=== PATIENT | female | born 1990 | race Two or more races ===

== ENCOUNTER → 2019-01-03 | Outpatient (CLI) | payer BC ==
--- NOTE | 2019-01-03 14:57 | RADIOLOGY REPORT (SQ) ---
EXAM DESCRIPTION: U/S NON-OB PELVIS TV W/O DOP COMPLETED DATE/TIME: 01/03/2019 2:47 pm REASON FOR STUDY: N91.2 AMENORRHEA, UNSPECIFIED N91.2 AMENORRHEA, UNSPECIFIED COMPARISON: None. TECHNIQUE: Dynamic and static grayscale images acquired of the pelvis via transvaginal approach and recorded on PACS. Additional selected color Doppler and spectral images recorded. LIMITATIONS: None. FINDINGS: UTERUS: Normal contour and size measuring 7.3 x 5.3 x 4.5 cm. Retroverted. ENDOMETRIAL STRIPE: Endometrial stripe measures 1.5 cm. CERVIX: No nabothian cysts. RIGHT OVARY AND DOPPLER: Normal size measuring 2.4 x 1.8 x 1.3 cm. No worrisome masses. Normal arteri al vascular flow without evidence for torsion. LEFT OVARY AND DOPPLER: Normal size measuring 2.0 x 1.8 x 1.9 cm. No worrisome masses. Normal arteria l vascular flow without evidence for torsion. FREE FLUID: None noted. OTHER: No other significant finding. IMPRESSION: Unremarkable transvaginal pelvic ultrasound. TECHNICAL DOCUMENTATION: JOB ID: [id number]- All Rights Reserved Rev Reading location - IP/workstation name: [email or web address]
== END ==
LOC: RAD 13:51
PROVIDERS: ATTEND Nurse Practitioner Family
DX: N91.2 Amenorrhea, unspecified (principal)
CPT/HCPCS: 76830

== ENCOUNTER 2019-09-30 17:51 | Emergency (ER) | payer BC ==
--- NOTE | 2019-09-30 17:52 | ER Document Report ---
ED Fever - General Chief Complaint: Fever Stated Complaint: FEVER Time Seen by Provider: 09/30/19 17:51 Primary Care Provider: JUAN REED FNP-C [NO LOCAL MD] - Follow up in 3-5 days (Call for follow- up appointment if not improving in 2 to 3 days.) Notes: 29-year-old female past medical history significant for depression and insomnia presents to the emergency room complaining of a cough, headache, fever as high as 103.7 for 2 days. States she has been taking Mucinex, ibuprofen, and Tylenol without relief. Last dose around 4 PM today of Tylenol Mucinex. No ill contacts. No recent travel. No COVID-19 exposure, states has been eating and drinking normally. Denies worst headache of her life, no history of migraines, no sudden thunderclap, states the headache is worse when she coughs. No antibiotics in the past month. TRAVEL OUTSIDE OF THE [place] IN LAST 30 DAYS: No - Related Data Allergies/Adverse Reactions: No Known Drug Allergies Allergy (Unknown, Verified 01/11/15 16:16) Past Medical History - General Information source: Patient - Social History Smoking Status: Never Smoker Frequency of alcohol use: None Drug Abuse: None Family History: Arthritis, CAD, CVA, DM, Hyperlipidemia, Hypertension, Malignancy Endocrine Medical History: Reports: Hx Hyperthyroidism Skin Medical History: Reports Hx Psoriasis Past Surgical History: Reports: Hx Section, Hx Oral Surgery - Immunizations Hx Diphtheria, Pertussis, Tetanus Vaccination: Yes Review of Systems - Review of Systems Constitutional: Fever EENT: No symptoms reported Cardiovascular: No symptoms reported Respiratory: Cough. denies: Short of breath, Wheezing Gastrointestinal: No symptoms reported Musculoskeletal: No symptoms reported Skin: No symptoms reported Neurological/Psychological: Headaches -: Yes All other systems reviewed and negative Physical Exam - Vital signs Vitals: Temp 99.3 F 09/30/19 17:55 - General General appearance: Appears well, Alert In distress: Mild - HEENT Head: Normocephalic, Atraumatic Eyes: Normal Pupils: PERRL - Respiratory Respiratory status: No respiratory distress Chest status: Nontender Breath sounds: Rhonchi. No: Rales, Wheezing Chest palpation: Normal - Cardiovascular Rhythm: Regular Heart sounds: Normal auscultation Murmur: No - Back Back: Normal, Nontender. No: CVA tenderness - Neurological Neuro grossly intact: Yes Cognition: Normal Orientation: AAOx4 Pritesh Coma Scale Eye Opening: Spontaneous Pritesh Coma Scale Verbal: Oriented [place] Coma Scale Motor: Obeys Commands Pritesh Coma Scale Total: 15 Speech: Normal Motor strength normal: LUE, RUE, LLE, RLE Sensory: Normal - Skin Skin Temperature: Warm Skin Moisture: Dry Skin Color: Normal Course - Re-evaluation Re-evalutation: 09/30/19 19:25 Patient is currently resting comfortably states her headache has resolved. Reviewed negative chest x-ray, negative flu, negative strep test. Afebrile, nontoxic-appearing, tolerates p.o. fluids. Patient was counseled on viral illness. Patient has no risk factors for COVID-19 testing. Also not supportive therapy, outpatient follow-up with primary care physician if not improving in 2 to 3 days. Given strict return to the emergency room guidelines. Return for any new or worsening symptoms. All questions were answered. Patient verbalized understanding and agrees with plan of care. - Vital Signs Vital signs: Temp Pulse Resp BP Pulse Ox 99.2 F 92 18 113/76 95 09/30/19 19:36 09/30/19 19:36 09/30/19 19:36 09/30/19 19:36 09/30/19 19:36 - Diagnostic Test Radiology reviewed: Reports reviewed Discharge - Discharge Clinical Impression: Cough, Viral illness Fever Qualifiers: Fever type: unspecified Qualified Code(s): R50.9 - Fever, unspecified Condition: Stable Disposition: HOME, SELF-CARE Instructions: Acetaminophen, Fever ([facility]), Viral Syndrome ([facility]) Additional Instructions: Alternate Tylenol with Motrin, encourage fluids, follow-up primary care physician if not improving in 2 to 3 days. Return for any new or worsening symptoms. Referrals: JUAN REED FNP-C [NO LOCAL MD] - Follow up in 3-5 days (Call for follow- up appointment if not improving in 2 to 3 days.)
[2019-09-30] MEDS ORDERED: KETOROLAC TROMETHAMINE 60 MG/2 ML SDV IM ONE (18:30)
[2019-09-30 18:46] LABS: A TYPE INFLUENZA AG NEGATIVE (NEGATIVE); B INFLUENZA AG NEGATIVE (NEGATIVE)
--- NOTE | 2019-09-30 18:57 | RADIOLOGY REPORT (SQ) ---
EXAM DESCRIPTION: CHEST SINGLE VIEW IMAGES COMPLETED DATE/TIME: 09/30/2019 5:15 pm REASON FOR STUDY: cough COMPARISON: None. EXAM PARAMETERS: NUMBER OF VIEWS: One view. TECHNIQUE: Single frontal radiographic view of the chest acquired. RADIATION DOSE: NA LIMITATIONS: None. FINDINGS: LUNGS AND PLEURA: No opacities, masses or pneumothorax. No pleural effusion. MEDIASTINUM AND HILAR STRUCTURES: No masses. Contour normal. HEART AND VASCULAR STRUCTURES: Heart normal in size. Normal vasculature. BONES: No acute findings. HARDWARE: None in the chest. OTHER: No other significant finding. IMPRESSION: NO ACUTE RADIOGRAPHIC FINDING IN THE CHEST. TECHNICAL DOCUMENTATION: JOB ID: [id number] [employer]- All Rights Reserved Reading location - IP/workstation name: [id number]
[2019-09-30 19:40] VITALS: BP 113/76
== END 2019-09-30 19:41 | disposition home or self-care (01) ==
LOC: ER 17:51
DX: B34.9 Viral infection, unspecified (principal); R50.9 Fever, unspecified; R05 Cough; G47.00 Insomnia, unspecified; R51 Headache; Z79.899 Other long term (current) drug therapy; F32.9 Major depressive disorder, single episode, unspecified
CPT/HCPCS: 99283; 96372; 87070; 87880; 81025; 87804; 71045; J1885

== ENCOUNTER 2019-10-03 15:33 | Emergency (ER) | payer BC ==
[2019-10-03] MEDS ORDERED: KETOROLAC TROMETHAMINE INJ/PF 30 MG/1 ML SDV IV ONE (17:02)
[2019-10-03] MEDS ORDERED: NORMAL SALINE 1000 ML 1,000 ML IV ONE (17:02)
[2019-10-03] MEDS ORDERED: IPRATROPIUM/ALBUTEROL 0.5-2.5 MG/3 ML AMPUL NEB ONE (17:02)
[2019-10-03] MEDS ORDERED: BENZONATATE 100 MG CAPSULE PO ONE (17:02)
[2019-10-03] MEDS ORDERED: ONDANSETRON HCL INJ/PF 4 MG/2 ML SDV IV ONE (17:02)
[2019-10-03] MEDS ORDERED: PREDNISONE 20 MG TABLET PO ONE (17:03)
--- NOTE | 2019-10-03 17:31 | ER Document Report ---
Entered by JULIETH WINKLER SCRIBE 10/03/19 [id number] Acting as scribe for:CLAUDINE SILVA MD ED General - General Chief Complaint: Fever Stated Complaint: FEVER,HEADACHE Time Seen by Provider: 10/03/19 16:44 Primary Care Provider: JOAO MCDANIEL MD [Primary Care Provider] - Follow up as needed Information source: Patient Notes: This 29-year-old female presents to the emergency department complaining of a fever that started 5 days prior to arrival. Patient explains that 5 days ago, she began coughing and later that night had a fever. Patient came to the emergency department 3 days ago for her fever. Patient reports that 3 days ago, she had a non-productive cough and a fever of 103.7. Patient had a negative flu, chest x-ray, step and test during the ED visit three days ago. Patient states that her symptoms have worsened. Patient reports that last night her fever was 104 and she still has a non-productive cough. Patient states that she has been taking Tylenol every four hours and Robitussin with no relief. Patient reports shortness of breath, nausea and wheezing that is worse at night. Patient also reports a headache that is located towards the back of her head that is worse with coughing. Patient denies sputum, vomiting, rhinorrhea and co ngestion. Patient reports that her last normal menstrual period was 10/01/2019. TRAVEL OUTSIDE OF THE [place] IN LAST 30 DAYS: No - Related Data Allergies/Adverse Reactions: No Known Drug Allergies Allergy (Unknown, Verified 01/11/15 16:16) Past Medical History - General Information source: Patient - Social History Smoking Status: Never Smoker Cigarette use (# per day): No Chew tobacco use (# tins/day): No Frequency of alcohol use: None Drug Abuse: None Lives with: Spouse/Significant other Family History: Arthritis, CAD, CVA, DM, Hyperlipidemia, Hypertension, Malignancy Endocrine Medical History: Reports: Hx Hyperthyroidism Skin Medical History: Reports Hx Psoriasis Past Surgical History: Reports: Hx Section - X2, Hx Oral Surgery - Immunizations Hx Diphtheria, Pertussis, Tetanus Vaccination: Yes Review of Systems - Review of Systems Constitutional: See HPI, Fever EENT: See HPI. denies: Nose congestion Cardiovascular: No symptoms reported Respiratory: See HPI, Cough, Short of breath, Wheezing. denies: Sputum Gastrointestinal: See HPI, Nausea. denies: Vomiting Genitourinary: No symptoms reported Female Genitourinary: See HPI, Last menstrual period Musculoskeletal: No symptoms reported Skin: No symptoms reported Hematologic/Lymphatic: No symptoms reported Neurological/Psychological: See HPI, Headaches -: Yes All other systems reviewed and negative Physical Exam - Vital signs Vitals: Temp 98.5 F 10/03/19 16:56 - General General appearance: Appears well In distress: None - HEENT Head: Normocephalic, Atraumatic Eyes: Normal Extraocular movements intact: Yes Pupils: PERRL Tympanic membrane: Normal Sinus: Normal Nasal: Normal Mucous membranes: Normal Pharynx: Normal Neck: Normal - Respiratory Respiratory status: No respiratory distress Chest status: Nontender Breath sounds: Other - Wheeze with cough and Coarse breath sounds - Cardiovascular Rhythm: Regular Heart sounds: Normal auscultation Murmur: No - Abdominal Inspection: Normal Distension: No distension Bowel sounds: Normal Tenderness: Nontender Organomegaly: No organomegaly - Back Back: Normal, Nontender - Extremities General upper extremity: Normal inspection, Nontender, Normal color, Normal ROM, Normal temperature General lower extremity: Normal inspection, Nontender, Normal color, Normal ROM, Normal temperature, Normal weight bearing. No: Ray's sign - Neurological Neuro grossly intact: Yes Cognition: Normal Orientation: AAOx4 Pritesh Coma Scale Eye Opening: Spontaneous [place] Coma Scale Verbal: Oriented Pritesh Coma Scale Motor: Obeys Commands [place] Coma Scale Total: 15 Speech: Normal Motor strength normal: LUE, RUE, LLE, RLE Sensory: Normal - Psychological Associated symptoms: Normal affect, Normal mood - Skin Skin Temperature: Warm Skin Moisture: Dry Skin Color: Normal Course - Re-evaluation Re-evalutation: 10/03/19 18:48 After the nebulizer treatment, the wheezes are heard when the head the patient cough I do not hear any longer. Her voice is becoming a little more hoarse and higher pitched, and talking causes her to cough. - Vital Signs Vital signs: Temp Pulse Resp BP Pulse Ox 98.5 F 10/03/19 16:56 - Laboratory Result Diagrams: 10/03/19 16:48 10/03/19 16:48 Laboratory results interpreted by me: 10/03/19 10/03/19 10/03/19 16:48 16:48 16:48 RDW 14.2 H Sodium 134.3 L Potassium 3.5 L Chloride 97 L BUN 6 L AST 57 H ALT 89 H Alkaline Phosphatase 213 H Urine Blood SMALL H Discharge - Discharge Clinical Impression: Viral upper respiratory tract infection with cough, Laryngitis Condition: Stable Disposition: HOME, SELF-CARE Additional Instructions: Upper Respiratory Illness: You have a viral infection of the respiratory passages -- a "cold." This common infection causes nasal congestion, drainage, and often sore throat and cough. It is caused by a virus and is highly contagious. The disease usually lasts a week or more, though the worst symptoms are usually over in 3 or 4 days. There is no "cure" for the viral infection -- it must run its course. If there is a complication, such as bacterial infection in the nose, sinuses, midd le ear, or bronchial tubes, antibiotics may be required, but antibiotics won't affect the virus. If you smoke, you should STOP!! Drink plenty of fluids. A humidifier may help. An expectorant medication or decongestant may make you more comfortable. Use acetaminophen or ibuprofen for fever or aches. See the doctor if fever persists over two or three days, if there is any significant worsening of your symptoms, or if you simply fail to improve as expected. Laryngitis: You have laryngitis. This is an inflammation of the vocal cords which leads to inability to speak normally. Any irritation to the airway can cause laryngitis. Causes include virus infection, smoke inhalation, allergy, or even trauma due to excessive talking or shouting. Rest your voice. Any vibration of the vocal cords increases and prolongs the swelling. Humidity is helpful, especially cool mist. Avoid dust, chemical fumes, and smoke. Avoid decongestants and antihistamines -- these will make you worse. You can expect to recover completely in a few days. See the physician if new symptoms develop, such as high fever, productive cough, shortness of breath, or if you do not improve within a few days. Take the Tessalon Perles as prescribed to help control your cough. Start taking the prednisone tomorrow as prescribed. Use the albuterol inhaler 2 puffs every 4 hours as needed for wheezing. Try taking the generic version of Delsym DM for additional control of your cough. Drink plenty of fluids and get plenty of rest. Try to limit talking as much as possible. Take Tylenol and ibuprofen for fever or headaches as needed. Follow-up with your primary care provider if not getting better over the next 1 to 2 weeks. RETURN TO THE EMERGENCY ROOM IF ANY NEW OR WORSENING SYMPTOMS. Prescriptions: Prednisone [Deltasone 10 mg Tablet] 10 mg PO ASDIR PRN #15 tablet PRN Reason: Albuterol Sulfate [Proair Hfa Inhalation Aerosol 8.5 gm Mdi] 2 puff IH ASDIR PRN #1 mdi PRN Reason: Benzonatate [Tessalon Perles 100 mg Capsule] 100 mg PO ASDIR PRN #30 capsule PRN Reason: Referrals: JOAO MCDANIEL MD [Primary Care Provider] - Follow up as needed I personally performed the services described in the documentation, reviewed and edited the documentation which was dictated to the scribe in my presence, and it accurately records my words and actions.
[2019-10-03 17:37] LABS: ABSOLUTE LYMPHOCYTES (AUTO) 0.9 10^3/uL (0.5-4.7); ABSOLUTE MONOCYTES (AUTO) 0.5 10^3/uL (0.1-1.4); ABSOLUTE NEUT (AUTO) 3.8 10^3/uL (1.7-8.2); BASOPHILS % (AUTO) 0.2 % (0-2); EOSINOPHILS % (AUTO) 0.2 % (0-6); HEMATOCRIT 38.9 % (36.0-47.0); HEMOGLOBIN 13.4 g/dL (12.0-15.5); LYMPHOCYTES % (AUTO) 16.6 % (13-45); MEAN CORPUSCULAR HEMOGLOBIN 29.1 pg (27.0-33.4); MEAN CORPUSCULAR HGB CONC 34.5 g/dL (32.0-36.0); MEAN CORPUSCULAR VOLUME 85 fl (80-97); MONOCYTES % (AUTO) 10.2 % (3-13); PLATELET COUNT 248 10^3/uL (150-450); RED CELL DISTRIBUTION WIDTH 14.2 % (11.5-14.0); SEGMENTED NEUTROPHILS % (AUTO) 72.8 % (42-78); TOTAL CELLS COUNTED % (AUTO) 100 %; WHITE BLOOD COUNT 5.2 10^3/uL (4.0-10.5)
[2019-10-03 17:38] LABS: APPEARANCE,URINE CLEAR; BILIRUBIN,URINE NEGATIVE (NEGATIVE); COLOR,URINE STRAW; GLUCOSE, URINE NEGATIVE (NEGATIVE); KETONES,URINE NEGATIVE (NEGATIVE); LEUKOCYTE ESTERASE,URINE NEGATIVE (NEGATIVE); NITRITE,URINE NEGATIVE (NEGATIVE); PROTEIN,URINE NEGATIVE (NEGATIVE); URINE SPECIFIC GRAVITY 1.002; UROBILINOGEN,URINE NEGATIVE mg/dL (<2.0)
[2019-10-03 17:48] LABS: ALBUMIN 3.9 g/dL (3.5-5.0); ALKALINE PHOSPHATASE 213 U/L (38-126); ANION GAP 8 (5-19); ASPARTATE AMINO TRANSFERASE 57 U/L (14-36); BILIRUBIN,DIRECT 0.1 mg/dL (0.0-0.4); BILIRUBIN,TOTAL 0.6 mg/dL (0.2-1.3); BLOOD UREA NITROGEN 6 mg/dL (7-20); CALCIUM 8.9 mg/dL (8.4-10.2); CARBON DIOXIDE 29 mmol/L (22-30); CHLORIDE 97 mmol/L (98-107); CREATINE KINASE 121 U/L (30-135); GLUCOSE 102 mg/dL (75-110); POTASSIUM 3.5 mmol/L (3.6-5.0); TOTAL PROTEIN 7.2 g/dL (6.3-8.2)
[2019-10-03 19:37] VITALS: BP 126/77
== END 2019-10-03 19:37 | disposition home or self-care (01) ==
LOC: ER 15:33
DX: J06.9 Acute upper respiratory infection, unspecified (principal); B97.89 Other viral agents as the cause of diseases classified elsewhere; J04.0 Acute laryngitis; R50.9 Fever, unspecified; R05 Cough; R06.02 Shortness of breath; R06.2 Wheezing; R11.0 Nausea; R51 Headache
CPT/HCPCS: 94640; 99284; 96361; 96374; 96375; 36415; 82550; 85025; 80053; 81001; J1885; J7512; J2405; J7030; J7620

== ENCOUNTER 2019-10-09 05:02 | Inpatient (IN) | payer BC ==
[2019-10-09] MEDS ORDERED: IPRATROPIUM/ALBUTEROL 0.5-2.5 MG/3 ML AMPUL NEB ONE (05:45)
--- NOTE | 2019-10-09 05:52 | ER Document Report ---
ED Respiratory Problem - General Chief Complaint: Shortness Of Breath Stated Complaint: SHORTNESS OF BREATH Time Seen by Provider: 10/09/19 05:27 Primary Care Provider: JOAO MCDANIEL MD [Primary Care Provider] - Follow up as needed Notes: CHIEF COMPLAINT: Shortness of breath HPI: 29-year-old female who is otherwise healthy presenting for shortness of breath. Patient began having symptoms of cough fever and shortness of breath 10 days ago. States initially she was seen in the emergency department had a chest x-ray and a flu test that were both negative. Shortness of breath did not improve so she came back to the emergency department several days ago, states she had lab work that was negative and was placed on steroids and an inhaler. She has finished the steroids and is still using the inhaler but still feeling significantly short of breath. Patient states that she becomes short of breath with speaking or with exertional activities. No chest pain. No fever at this time. Patient is not on oral control. Denies . Patient states that her does work in the [employer] system and she has not had a COVID test ROS: See HPI - all other systems were reviewed and are otherwise negative Constitutional: no fever Eyes: no drainage, no blurred vision ENT: no runny nose, no sore throat Cardiovascular: no chest pain Resp: + SOB, + cough GI: no vomiting, no diarrhea, no abdominal pain : no dysuria Integumentary: no rash Allergy: no hives Musculoskeletal: no extremity pain or swelling Neurological: no numbness/tingling, no weakness MEDICATIONS: I agree with the patient medications as charted by the RN. ALLERGIES: I agree with the allergies as charted by the RN. PAST MEDICAL HISTORY/PAST SURGICAL HISTORY: Reviewed and agree as charted by RN. SOCIAL HISTORY: Reviewed and agree as charted by RN. FAMILY HISTORY: No significant familial comorbid conditions directly related to patient complaint EXAM: Reviewed vital signs as charted by RN. CONSTITUTIONAL: Alert and oriented and responds appropriately to questions. Well-appearing; well-nourished, mild distress secondary to shortness of breath HEAD: Normocephalic; atraumatic EYES: PERRL; Conjunctivae clear, sclerae non-icteric ENT: normal nose; no rhinorrhea; moist mucous membranes; pharynx without lesions noted, no uvula edema or deviation, no tonsillar hypertrophy, phonation normal NECK: Supple without meningismus; non-tender; no cervical lymphadenopathy, no masses CARD: RRR; no murmurs, no clicks, no rubs, no gallops; symmetric distal pulses RESP: Normal chest excursion without splinting or tachypnea; breath sounds decreased bilaterally; trace expiratory wheezes, no rhonchi, no rales, pulse oximetry 87% on room air, improved to 97% on 2 L. Patient becomes mildly dyspneic with speaking ABD/GI: Normal bowel sounds; non-distended; soft, non-tender, no rebound, no guarding; no palpable organomegaly or masses. BACK: The back appears normal and is non-tender to palpation, there is no CVA tenderness EXT: Normal ROM in all joints; non-tender to palpation; no cyanosis, no effusions, no edema SKIN: Normal color for age and race; warm; dry; good turgor; no acute lesions noted NEURO: Moves all extremities equally; Motor and sensory function intact PSYCH: The patient's mood and manner are appropriate. Grooming and personal hygiene are appropriate. MDM: 29-year-old female presenting for worsening shortness of breath. States it is especially bad with coughing episodes but she does feel dyspneic with speaking. Has finished a course of steroids, still using the inhaler every few hours. Has not followed up in the last 10 days with a PCP. No asthma history. She is not on oral control, this is her third visit for similar symptoms. Will obtain CT of the chest to evaluate for PE or pneumonia. She initially had a negative chest x-ray for pneumonia. Patient will also undergo COVID testing as her works in the [employer] system which had not previously been done TRAVEL OUTSIDE OF THE [place] IN LAST 30 DAYS: No - Related Data Allergies/Adverse Reactions: No Known Drug Allergies Allergy (Unknown, Verified 01/11/15 16:16) Past Medical History - Social History Smoking Status: Unknown if Ever Smoked Family History: Arthritis, CAD, CVA, DM, Hyperlipidemia, Hypertension, Malignancy Endocrine Medical History: Reports: Hx Hyperthyroidism Skin Medical History: Reports Hx Psoriasis Past Surgical History: Reports: Hx Section - X2, Hx Oral Surgery - Immunizations Hx Diphtheria, Pertussis, Tetanus Vaccination: Yes Physical Exam - Vital signs Vitals: Temp 98.5 F 10/09/19 05:02 Course - Re-evaluation Re-evalutation: 10/09/19 06:45 Patient appears to have a multilobar pneumonia, she is still requiring oxygen support. Will order antibiotics and blood cultures, she will need admission 10/09/19 07:[address] Francois, Hospitalist, will come see patient - Vital Signs Vital signs: Temp Pulse Resp BP Pulse Ox 98.5 F 101 H 19 102/79 93 10/09/19 07:04 10/09/19 07:04 10/09/19 07:04 10/09/19 07:04 10/09/19 07:04 - Laboratory Result Diagrams: 10/09/19 05:43 10/09/19 05:43 Laboratory results interpreted by me: 10/09/19 10/09/19 05:43 05:43 Hct 35.5 L RDW 14.1 H Seg Neuts % (Manual) 87 H Lymphocytes % (Manual) 7 L Abs Neuts (Manual) 8.4 H Sodium 135.1 L Potassium 3.3 L ALT 47 H Albumin 3.4 L Discharge - Discharge Clinical Impression: Multilobar lung infiltrate Condition: Fair Disposition: ADMITTED INPATIENT Admitting Provider: Priscila (Hospitalist) Unit Admitted: Medical Floor Referrals: JOAO MCDANIEL MD [Primary Care Provider] - Follow up as needed
[2019-10-09 05:53] LABS: HEMATOCRIT 35.5 % (36.0-47.0); HEMOGLOBIN 12.8 g/dL (12.0-15.5); MEAN CORPUSCULAR HEMOGLOBIN 31.2 pg (27.0-33.4); MEAN CORPUSCULAR HGB CONC 35.9 g/dL (32.0-36.0); MEAN CORPUSCULAR VOLUME 87 fl (80-97); PLATELET COUNT 406 10^3/uL (150-450); RED BLOOD COUNT 4.09 10^6/uL (3.72-5.28); RED CELL DISTRIBUTION WIDTH 14.1 % (11.5-14.0); WHITE BLOOD COUNT 9.7 10^3/uL (4.0-10.5)
[2019-10-09 06:04] LABS: ALBUMIN 3.4 g/dL (3.5-5.0); ALKALINE PHOSPHATASE 124 U/L (38-126); ANION GAP 7 (5-19); ASPARTATE AMINO TRANSFERASE 35 U/L (14-36); BILIRUBIN,TOTAL 0.8 mg/dL (0.2-1.3); BLOOD UREA NITROGEN 10 mg/dL (7-20); CALCIUM 8.8 mg/dL (8.4-10.2); CARBON DIOXIDE 27 mmol/L (22-30); CHLORIDE 101 mmol/L (98-107); GLUCOSE 105 mg/dL (75-110); POTASSIUM 3.3 mmol/L (3.6-5.0); TOTAL PROTEIN 6.7 g/dL (6.3-8.2)
[2019-10-09] MEDS ORDERED: CEFTRIAXONE 1 GM/D5W RTU 1 GM/50 ML RTUPB IV ONE (06:29)
[2019-10-09] MEDS ORDERED: AZITHROMYCIN INJ 500 MG VIAL IV ONE (06:33)
[2019-10-09 06:48] LABS: ABSOLUTE LYMPHOCYTES# (MANUAL) 0.7 10^3/uL (0.5-4.7); ABSOLUTE MONOCYTES # (MANUAL) 0.6 10^3/uL (0.1-1.4); BASOPHILS % (MANUAL) 0 % (0-2); EOSINOPHILS % (MANUAL) 0 % (0-6); LYMPHOCYTES % (MANUAL) 7 % (13-45); MONOCYTES % (MANUAL) 6 % (3-13); SEGMENTED NEUTROPHILS % (MAN) 87 % (42-78); TOTAL CELLS COUNTED 100
[2019-10-09 06:49] LABS: APPEARANCE,URINE CLEAR; BILIRUBIN,URINE NEGATIVE (NEGATIVE); COLOR,URINE YELLOW; GLUCOSE, URINE NEGATIVE (NEGATIVE); KETONES,URINE NEGATIVE (NEGATIVE); LEUKOCYTE ESTERASE,URINE NEGATIVE (NEGATIVE); NITRITE,URINE NEGATIVE (NEGATIVE); PROTEIN,URINE NEGATIVE (NEGATIVE); URINE SPECIFIC GRAVITY 1.036; UROBILINOGEN,URINE NEGATIVE mg/dL (<2.0)
[2019-10-09 06:49] LABS: OVALOCYTES SLIGHT; PLATELET COMMENT ADEQUATE; POIKILOCYTOSIS SLIGHT; TOXIC GRANULATION 1+
--- NOTE | 2019-10-09 06:53 | RADIOLOGY REPORT (SQ) ---
AP Portable chest: 10/09/2019 5:51 AM CDT History: 29-year old patient with dyspnea. Comparison: Chest radiograph performed 09/30/2019. Findings: The cardiomediastinal silhouette is enlarged. No pneumothorax is seen. There are bibasilar space opacities, left greater than right. There is blunting of both costophrenic angles, suggestive of trace effusions. There is partial obscuration of both hemidiaphragms, likely due to overlying airspace opacities and/or effusions. Impression: There are bibasilar space opacities with trace effusions, most pronounced on the left side. These are concerning for developing infection..
--- NOTE | 2019-10-09 06:56 | RADIOLOGY REPORT (SQ) ---
CT ANGIOGRAM CHEST WITH IV CONTRAST: 10/09/2019 5:52 AM CDT HISTORY: 29-year old patient with hypoxia. TECHNIQUE: Postcontrast CT through the chest was performed per protocol for CT angiography. 3D Multiplanar reformations were performed at the workstation. Reconstructed sagittal and coronal images were also obtained through the chest. This exam was performed according to our departmental dose-optimization program, which includes automated exposure control, adjustment of the mA and/or KV according to the patient's size and/or use of iterative reconstruction technique. COMPARISON: None available FINDINGS: The heart size is within normal limits of size. No significant mediastinal, supraclavicular, or axillary lymphadenopathy is seen. The thoracic aorta is within normal limits of size. No filling defects are seen within the pulmonary arteries to suggest a pulmonary artery embolism. The main pulmonary artery is within normal limits of size. The thyroid gland is unremarkable. The central tracheobronchial tree is patent. There are airspace opacities within the lung bases, most pronounced at the left lung base. These are also seen at the right upper lobe. These are noted at the periphery and are concerning for infection. Air bronchograms are also noted. There are some reticulonodular airspace opacities are seen at the left upper lobe. There is no evidence of pleural effusions or a pneumothorax. The bones demonstrate no suspicious lytic or blastic lesion. The visualized portions of the upper abdomen appear grossly unremarkable. IMPRESSION: There are bilateral airspace opacities concerning for infection. These can be seen with atypical viral or bacterial infections. No filling defect is seen to suggest a pulmonary artery embolism.
[2019-10-09] MEDS: ACETAMINOPHEN 325 MG TABLET PO PRN ×2 (12:41→20:00)
--- NOTE | 2019-10-09 15:18 | PDOC H&P ---
History of Present Illness Admission Date/PCP: 10/09/19 07:44 JOAO MCDANIEL MD History of Present Illness: ZOË MILLER is a 29 year old female with no significant past medical history except for psoriasis who presents with an 11-day history of upper respiratory symptoms. Of note, she has not been on any treatment for her psoriasis in 6 months, or any medications of any sort. She said her symptoms started on September 27, starting with a general malaise, which developed into a cough . She is also complained of some sore throat. She has not noticed any rashes. She said she had a fever for several days but has not had a fever since last week. Right now she just feels weak with a cough. She has never smoked or used a vaping device. She does not use any drugs. She does not consume alcohol. She does not take any [id number] supplements. Her works at the correction in [place] and she said he has had a moderate illness as well. I do not recall at this time if she was sick first or him. She said that her mother came from [place] to get her kids while she was sick, otherwise this is the only close contact she has had. She says the only store she has been to our [employer], [employer], and another local grocery store. Other than her , she does not know anyone else currently that is sick. Went to her primary care provider several days ago and got some prednisone and some antibiotic. Her symptoms have not gotten any worse, but I do not seem to have gotten any better. Her pulse oximetry was within the normal range but it was at the low end of normal, 90% on room air. She had bibasilar infiltrates along with a right upper lobe infiltrate on chest x-ray, CTA of the chest was negative for PE but confirmed the x-ray findings. She said that she was tested for influenza and coronavirus at her doctor's office and both were negative. She has tested negative here as well. Past Medical History Endocrine Medical History: Reports: Hyperthyroidism Skin Medical History: Reports: Psoriasis Psychiatric Medical History: Reports: Depression Past Surgical History Past Surgical History: Reports: Section - X2 Social History Smoking Status: Never Smoker Family History Family History: Arthritis, CAD, CVA, DM, Hyperlipidemia, Hypertension, Malignancy Parental Family History Reviewed: Yes Children Family History Reviewed: Yes Sibling(s) Family History Reviewed.: Yes Medication/Allergy Home Medications: Acetaminophen [Tylenol 325 mg Tablet] 325 mg PO DAILYP PRN 10/09/19 Albuterol Sulfate [Albuterol Sulfate Hfa] 2 puff PO Q4HP PRN 10/09/19 Benzonatate [Tessalon Perles 100 mg Capsule] 100 mg PO Q6HP PRN 10/09/19 Bupropion HCl [Bupropion Xl] 300 mg PO DAILY 10/09/19 Dextromethorphan HBr [Robitussin] 15 mg PO DAILYP PRN 10/09/19 Ibuprofen 200 mg PO DAILYP PRN 10/09/19 Quetiapine Fumarate [Seroquel] 150 mg PO DAILY 10/09/19 Sertraline HCl 100 mg PO DAILY 10/09/19 Zolpidem Tartrate [Ambien 5 mg Tablet] 5 mg PO QHS 10/09/19 Allergies/Adverse Reactions: No Known Drug Allergies Allergy (Unknown, Verified 10/09/19 09:35) Review of Systems All systems: reviewed and no additional remarkable complaints except as stated - All systems were reviewed and were negative except as noted in HPI Physical Exam Vital Signs: Temp Pulse Resp BP Pulse Ox 99 F 94 18 107/53 L 94 10/09/19 12:18 10/09/19 12:18 10/09/19 12:18 10/09/19 12:18 10/09/19 12:18 Intake & Output 10/08/19 10/09/19 10/10/19 06:59 06:59 06:59 Intake Total 50 Balance 50 Weight 98.43 kg 95.4 kg General appearance: PRESENT: cooperative, disheveled, mild distress, morbidly obese, well-developed, well-nourished, other - Looks fatigued Head exam: PRESENT: atraumatic, normocephalic Eye exam: PRESENT: EOMI, PERRLA. ABSENT: scleral icterus Ear exam: PRESENT: normal external ear exam Mouth exam: PRESENT: moist, neck supple Throat exam: PRESENT: post pharyngeal erythema - Very mild Neck exam: PRESENT: full ROM, lymphadenopathy - Very mild cervical adenopathy. ABSENT: carotid bruit, JVD, meningismus, tenderness, thyromegaly Respiratory exam: PRESENT: clear to auscultation jeovany, symmetrical, unlabored. ABSENT: accessory muscle use, chest wall tenderness, crackles, prolonged expiratory phas, rhonchi, tachypnea, wheezes Cardiovascular exam: PRESENT: +S1, +S2, tachycardia. ABSENT: diastolic murmur, systolic murmur Pulses: PRESENT: normal carotid pulses Vascular exam: PRESENT: normal capillary refill GI/Abdominal exam: PRESENT: normal bowel sounds, soft. ABSENT: distended, guarding, rebound, tenderness Extremities exam: ABSENT: clubbing, pedal edema Musculoskeletal exam: PRESENT: ambulatory, normal inspection. ABSENT: deformity Neurological exam: PRESENT: alert, awake, oriented to person, oriented to place, oriented to time, oriented to situation, CN II-XII grossly intact. ABSENT: motor sensory deficit Psychiatric exam: PRESENT: appropriate affect Skin exam: PRESENT: dry, warm. ABSENT: rash Results Laboratory Results: 10/09/19 05:43 10/09/19 05:43 10/09/19 10/09/19 10/09/19 05:43 05:43 06:40 WBC 9.7 RBC 4.09 Hgb 12.8 Hct 35.5 L MCV 87 MCH 31.2 MCHC 35.9 RDW 14.1 H Plt Count 406 Seg Neutrophils % Not Reportable Sodium 135.1 L Potassium 3.3 L Chloride 101 Carbon Dioxide 27 Anion Gap 7 BUN 10 Creatinine 0.77 Est GFR ( Amer) > 60 Glucose 105 Calcium 8.8 Total Bilirubin 0.8 AST 35 Alkaline Phosphatase 124 Total Protein 6.7 Albumin 3.4 L Urine Color YELLOW Urine Appearance CLEAR Urine pH 6.0 Ur Specific [place] 1.036 Urine Protein NEGATIVE Urine Glucose (UA) NEGATIVE Urine Ketones NEGATIVE Urine Blood NEGATIVE Urine Nitrite NEGATIVE Ur Leukocyte Esterase NEGATIVE Urine WBC (Auto) 1 Urine RBC (Auto) 1 10/09/19 05:43 Troponin I < 0.012 Impressions: Chest/Abdomen CTA 10/09/19 05:45 IMPRESSION: There are bilateral airspace opacities concerning for infection. These can be seen with atypical viral or bacterial infections. No filling defect is seen to suggest a pulmonary artery embolism. Assessment and Plan - Diagnosis (1) Sepsis Qualifiers: Sepsis type: sepsis due to unspecified organism Sepsis acute organ dysfunction status: without acute organ dysfunction Qualified Code(s): A41.9 - Sepsis, unspecified organism Is this a current diagnosis for this admission?: Yes Plan: She has tachycardia and tachypnea with near hypoxia, SPO2 90% on room air. She is tested negative for coronavirus. Her Monospot was negative. She has obvious evidence of a pneumonitis, which is due to a suspected infectious etiology. Supplemental O2 as needed. Cultures pending. Empiric antibiotics. (2) Multilobar lung infiltrate Is this a current diagnosis for this admission?: Yes Plan: Negative for coronavirus a negative for Monospot. She says she is tested negative for the flu last week. We have gotten blood cultures, will attempt to get a sputum culture. Will treat empirically with Rocephin and azithromycin. - Time Time Spent with patient: 35 or more minutes - Inpatient Certification Based on my medical assessment, after consideration of the patient's comorbidities, presenting symptoms, or acuity I expect that the services needed warrant INPATIENT care.: Yes I certify that my determination is in accordance with my understanding of Medicare's requirements for reasonable and necessary INPATIENT services [42 CFR 412.3e].: Yes Medical Necessity: Failure to Improve With Outpatient Therapy, Need Close Monitoring Due to Risk of Patient Decompensation, Need For Continuous Telemetry Monitoring, Need for IV Antibiotics, Risk of Complication if Not Cared For in Hospital
[2019-10-09] MEDS: GUAIFENESIN SYRP 200 MG/10 ML UDC PO PRN (21:45)
[2019-10-10] MEDS: GUAIFENESIN SYRP 200 MG/10 ML UDC PO PRN ×3 (02:00→18:54)
[2019-10-10] MEDS ORDERED: BENZOCAINE/MENTHOL SORE THROAT LOZENGE BUCCAL PRN (05:58)
[2019-10-10 06:13] LABS: ANION GAP 6 (5-19); BLOOD UREA NITROGEN 6 mg/dL (7-20); CALCIUM 8.6 mg/dL (8.4-10.2); CARBON DIOXIDE 28 mmol/L (22-30); CHLORIDE 101 mmol/L (98-107); GLUCOSE 91 mg/dL (75-110); POTASSIUM 3.8 mmol/L (3.6-5.0)
--- NOTE | 2019-10-10 07:25 | EKG REPORT ---
SEVERITY:- OTHERWISE NORMAL ECG - SINUS TACHYCARDIA : Confirmed by: Randal De León MD 10-Oct-2019 07:24:51
[2019-10-10] MEDS: ACETAMINOPHEN 325 MG TABLET PO PRN (08:17)
[2019-10-10 08:34] LABS: ABSOLUTE EOSINOPHILS # (AUTO) 0.1 10^3/uL (0.0-0.6); ABSOLUTE LYMPHOCYTES (AUTO) 1.1 10^3/uL (0.5-4.7); ABSOLUTE NEUT (AUTO) 6.5 10^3/uL (1.7-8.2); BASOPHILS % (AUTO) 0.4 % (0-2); EOSINOPHILS % (AUTO) 1.6 % (0-6); HEMATOCRIT 34.7 % (36.0-47.0); HEMOGLOBIN 12.1 g/dL (12.0-15.5); MONOCYTES % (AUTO) 11.2 % (3-13); PLATELET COUNT 370 10^3/uL (150-450); RED CELL DISTRIBUTION WIDTH 14.4 % (11.5-14.0); SEGMENTED NEUTROPHILS % (AUTO) 73.8 % (42-78); TOTAL CELLS COUNTED % (AUTO) 100 %; WHITE BLOOD COUNT 8.7 10^3/uL (4.0-10.5)
[2019-10-10 08:39] LABS: MEAN CORPUSCULAR HEMOGLOBIN 29.2 pg (27.0-33.4); MEAN CORPUSCULAR HGB CONC 34.9 g/dL (32.0-36.0); MEAN CORPUSCULAR VOLUME 84 fl (80-97); RED BLOOD COUNT 4.13 10^6/uL (3.72-5.28)
[2019-10-10] MEDS: CEFTRIAXONE 1 GM/D5W RTU 1 GM/50 ML RTUPB IV SCH (09:20)
[2019-10-10] MEDS: AZITHROMYCIN 500 MG in DEXTROSE 5%-WATER 250 ML IV SCH (10:57)
--- NOTE | 2019-10-10 15:50 | PDOC PROGRESS REPORT ---
Subjective Progress Note for:: 10/10/19 Subjective:: No adverse events overnight. Her breathing feels fairly comfortable. She still feels she is mostly fatigued. Monospot was negative. She has been afebrile. We took her off oxygen as she was in the low 90s on room air breathing comfortably. Reason For Visit: SEPSIS, CAP Physical Exam Vital Signs: Temp Pulse Resp BP Pulse Ox 98.7 F 74 19 98/61 L 92 10/10/19 11:39 10/10/19 14:00 10/10/19 11:39 10/10/19 11:39 10/10/19 12:00 Intake & Output 10/09/19 10/10/19 10/11/19 06:59 06:59 06:59 Intake Total 1090 420 Output Total 2 Balance 1088 420 Weight 98.43 kg 95.1 kg General appearance: PRESENT: cooperative, disheveled, no apparent distress, morbidly obese, well-developed, well-nourished, other - Looks fatigued Respiratory exam: PRESENT: clear to auscultation jeovany, symmetrical, unlabored. ABSENT: accessory muscle use, chest wall tenderness, crackles, prolonged expiratory phase, rhonchi, tachypnea, wheezes Cardiovascular exam: PRESENT: +S1, +S2, tachycardia. ABSENT: diastolic murmur, systolic murmur Pulses: PRESENT: normal carotid pulses Vascular exam: PRESENT: normal capillary refill GI/Abdominal exam: PRESENT: normal bowel sounds, soft. ABSENT: distended, guarding, rebound, tenderness Extremities exam: ABSENT: clubbing, pedal edema Musculoskeletal exam: PRESENT: ambulatory, normal inspection. ABSENT: deformity Neurological exam: PRESENT: alert, awake, oriented to person, oriented to place, oriented to time, oriented to situation Psychiatric exam: PRESENT: appropriate affect Skin exam: PRESENT: dry, warm. ABSENT: rash Results Laboratory Results: 10/10/19 07:23 10/10/19 05:17 10/10/19 10/10/19 10/10/19 05:17 05:17 07:23 WBC Cancelled 8.7 RBC Cancelled 4.13 Hgb Cancelled 12.1 Hct Cancelled 34.7 L MCV Cancelled 84 MCH Cancelled 29.2 MCHC Cancelled 34.9 RDW Cancelled 14.4 H Plt Count Cancelled 370 Seg Neutrophils % Cancelled 73.8 Sodium 134.9 L Potassium 3.8 Chloride 101 Carbon Dioxide 28 Anion Gap 6 BUN 6 L Creatinine 0.75 Est GFR ( Amer) > 60 Glucose 91 Calcium 8.6 10/09/19 05:43 Troponin I < 0.012 Impressions: Chest/Abdomen CTA 10/09/19 05:45 IMPRESSION: There are bilateral airspace opacities concerning for infection. These can be seen with atypical viral or bacterial infections. No filling defect is seen to suggest a pulmonary artery embolism. Assessment and Plan - Diagnosis (1) Sepsis Qualifiers: Sepsis type: sepsis due to unspecified organism Sepsis acute organ dysfunction status: without acute organ dysfunction Qualified Code(s): A41.9 - Sepsis, unspecified organism Is this a current diagnosis for this admission?: Yes Plan: Tachycardia and tachypnea are resolved. She has obvious evidence of a pneumonitis, which is due to a suspected infectious etiology. Supplemental O2 as needed. Cultures pending. Empiric antibiotics. We will monitor overnight and if she stable in the morning will likely discharge home. (2) Multilobar lung infiltrate Is this a current diagnosis for this admission?: Yes Plan: Negative for coronavirus a negative for Monospot. She says she is tested negative for the flu last week. We have gotten blood cultures, will attempt to get a sputum culture. Will treat empirically with Rocephin and azithromycin. - Time Time Spent with patient: 15-24 minutes
[2019-10-10] MEDS ORDERED: FLUCONAZOLE 100 MG TABLET PO ONE (21:00)
[2019-10-11] MEDS: GUAIFENESIN SYRP 200 MG/10 ML UDC PO PRN ×2 (00:04→04:05)
[2019-10-11 05:55] LABS: ANION GAP 7 (5-19); BLOOD UREA NITROGEN 7 mg/dL (7-20); CALCIUM 8.9 mg/dL (8.4-10.2); CARBON DIOXIDE 29 mmol/L (22-30); CHLORIDE 101 mmol/L (98-107); GLUCOSE 90 mg/dL (75-110); POTASSIUM 4.1 mmol/L (3.6-5.0)
[2019-10-11 06:15] LABS: ABSOLUTE EOSINOPHILS # (AUTO) 0.1 10^3/uL (0.0-0.6); EOSINOPHILS % (AUTO) 1.1 % (0-6); TOTAL CELLS COUNTED % (AUTO) 100 %
[2019-10-11 06:22] LABS: ABSOLUTE BASOPHILS # (AUTO) 0.1 10^3/uL (0.0-0.2); ABSOLUTE LYMPHOCYTES (AUTO) 1.5 10^3/uL (0.5-4.7); ABSOLUTE MONOCYTES (AUTO) 0.8 10^3/uL (0.1-1.4); ABSOLUTE NEUT (AUTO) 6.3 10^3/uL (1.7-8.2); HEMATOCRIT 36.3 % (36.0-47.0); HEMOGLOBIN 12.5 g/dL (12.0-15.5); LYMPHOCYTES % (AUTO) 16.9 % (13-45); MEAN CORPUSCULAR HEMOGLOBIN 29.7 pg (27.0-33.4); MEAN CORPUSCULAR HGB CONC 34.3 g/dL (32.0-36.0); MEAN CORPUSCULAR VOLUME 87 fl (80-97); MONOCYTES % (AUTO) 9.2 % (3-13); PLATELET COUNT 404 10^3/uL (150-450); RED BLOOD COUNT 4.19 10^6/uL (3.72-5.28); RED CELL DISTRIBUTION WIDTH 14.1 % (11.5-14.0); SEGMENTED NEUTROPHILS % (AUTO) 71.8 % (42-78); WHITE BLOOD COUNT 8.8 10^3/uL (4.0-10.5)
[2019-10-11] MEDS: ACETAMINOPHEN 325 MG TABLET PO PRN ×2 (06:34→11:05)
[2019-10-11] MEDS: CEFTRIAXONE 1 GM/D5W RTU 1 GM/50 ML RTUPB IV SCH (09:12)
[2019-10-11] MEDS: AZITHROMYCIN 500 MG in DEXTROSE 5%-WATER 250 ML IV SCH (10:02)
[2019-10-11 14:12] VITALS: BP 99/46
--- NOTE | 2019-10-11 17:55 | PDOC DISCHARGE SUMMARY ---
Impression - Admit/DC Date/PCP Admission Date/Primary Care Provider: 10/09/19 07:44 JOAO MCDANIEL MD Discharge Date: 10/11/19 - Discharge Diagnosis (1) Sepsis Is this a current diagnosis for this admission?: Yes (2) Multilobar lung infiltrate Is this a current diagnosis for this admission?: Yes - Additional Information Resuscitation Status: Full Code Discharge Diet: As Tolerated Discharge Activity: Activity As Tolerated, Balance Activity w/Rest Referrals: JOAO MCDANIEL MD [Primary Care Provider] - (1 week) Prescriptions: Levofloxacin [Levaquin 750 mg Tablet] 750 mg PO DAILY #5 tablet Home Medications: Acetaminophen [Tylenol 325 mg Tablet] 325 mg PO DAILYP PRN 10/09/19 Albuterol Sulfate [Albuterol Sulfate Hfa] 2 puff PO Q4HP PRN 10/09/19 Benzonatate [Tessalon Perles 100 mg Capsule] 100 mg PO Q6HP PRN 10/09/19 Dextromethorphan HBr [Robitussin] 15 mg PO DAILYP PRN 10/09/19 Ibuprofen 200 mg PO DAILYP PRN 10/09/19 Levofloxacin [Levaquin 750 mg Tablet] 750 mg PO DAILY #5 tablet 10/11/19 History of Present Illiness History of Present Illness: ZOË MILLER is a 29 year old female with no significant past medical history except for psoriasis who presents with an 11-day history of upper respiratory symptoms. Of note, she has not been on any treatment for her psoriasis in 6 months, or any medications of any sort. She said her symptoms started on September 27, starting with a general malaise, which developed into a cough. She is also complained of some sore throat. She has not noticed any rashes. She said she had a fever for several days but has not had a fever since last week. Right now she just feels weak with a cough. She has never smoked or used a vaping device. She does not use any drugs. She does not consume alcohol . She does not take any [id number] supplements. Her works at the detention in [place] and she said he has had a moderate illness as well. I do not recall at this time if she was sick first or him. She said that her mother came from [place] to get her kids while she was sick, otherwise this is the only close contact she has had. She says the only store she has been to our [employer], [employer], and another local grocery store. Other than her , she does not know anyone else currently that is sick. Went to her primary care provider several days ago and got some prednisone and some antibiotic. Her symptoms have not gotten any worse, but I do not seem to have gotten any better. Her pulse oximetry was within the normal range but it was at the low end of normal, 90% on room air. She had bibasilar infiltrates along with a right upper lobe infiltrate on chest x-ray, CTA of the chest was negative for PE but confirmed the x-ray findings. She said that she was tested for influenza and coronavirus at her doctor's office and both were negative. She has tested negative here as well. Hospital Course Hospital Course: Patient had a fairly uneventful hospital course. She was on oxygen for the first day or so but we were able to get her back on room air and her oxygen saturations were in the mid 90s on room air. She was negative for coronavirus and negative for mono. She said that as an outpatient she tested negative for influenza and also had a previous negative coronavirus test before she was admitted. She was given IV antibiotics here and was given some Levaquin to complete at home. She sees Dr. Mcdaniel and we will follow-up with him in about a week. Her labs and examination were reassuring and she was discharged in stable condition. Physical Exam Vital Signs: Temp Pulse Resp BP Pulse Ox 98.2 F 80 17 99/46 L 100 10/11/19 14:07 10/11/19 14:07 10/11/19 14:07 10/11/19 14:07 10/11/19 14:07 Intake & Output 10/10/19 10/11/19 10/12/19 06:59 06:59 06:59 Intake Total 1090 1960 300 Output Total 2 Balance 1088 1960 300 Weight 95.1 kg 95.6 kg General appearance: PRESENT: cooperative, disheveled, no apparent distress, morbidly obese, well-developed, well-nourished, other - Looks fatigued Respiratory exam: PRESENT: clear to auscultation jeovany, symmetrical, unlabored. ABSENT: accessory muscle use, chest wall tenderness, crackles, prolonged expir atory phase, rhonchi, tachypnea, wheezes Cardiovascular exam: PRESENT: +S1, +S2, tachycardia. ABSENT: diastolic murmur, systolic murmur Pulses: PRESENT: normal carotid pulses Vascular exam: PRESENT: normal capillary refill GI/Abdominal exam: PRESENT: normal bowel sounds, soft. ABSENT: distended, g uarding, rebound, tenderness Extremities exam: ABSENT: clubbing, pedal edema Musculoskeletal exam: PRESENT: ambulatory, normal inspection. ABSENT: deformity Neurological exam: PRESENT: alert, awake, oriented to person, oriented to place, oriented to time, oriented to situation Psychiatric exam: PRESENT: appropriate affect Skin exam: PRESENT: dry, warm. ABSENT: rash Results Laboratory Results: WBC 8.8 10^3/uL (4.0-10.5) 10/11/19 05:19 RBC 4.19 10^6/uL (3.72-5.28) 10/11/19 05:19 Hgb 12.5 g/dL (12.0-15.5) 10/11/19 05:19 Hct 36.3 % (36.0-47.0) 10/11/19 05:19 MCV 87 fl (80-97) 10/11/19 05:19 MCH 29.7 pg (27.0-33.4) 10/11/19 05:19 MCHC 34.3 g/dL (32.0-36.0) 10/11/19 05:19 RDW 14.1 % (11.5-14.0) H 10/11/19 05:19 Plt Count 404 10^3/uL (150-450) 10/11/19 05:19 Lymph % (Auto) 16.9 % (13-45) 10/11/19 05:19 Day % (Auto) 9.2 % (3-13) 10/11/19 05:19 Eos % (Auto) 1.1 % (0-6) 10/11/19 05:19 Baso % (Auto) 1.0 % (0-2) 10/11/19 05:19 Absolute Neuts (auto) 6.3 10^3/uL (1.7-8.2) 10/11/19 05:19 Absolute Lymphs (auto) 1.5 10^3/uL (0.5-4.7) 10/11/19 05:19 Absolute Monos (auto) 0.8 10^3/uL (0.1-1.4) 10/11/19 05:19 Absolute Eos (auto) 0.1 10^3/uL (0.0-0.6) 10/11/19 05:19 Absolute Basos (auto) 0.1 10^3/uL (0.0-0.2) 10/11/19 05:19 Total Counted 100 10/09/19 05:43 Seg Neutrophils % 71.8 % (42-78) 10/11/19 05:19 Seg Neuts % (Manual) 87 % (42-78) H 10/09/19 05:43 Lymphocytes % (Manual) 7 % (13-45) L 10/09/19 05:43 Monocytes % (Manual) 6 % (3-13) 10/09/19 05:43 Eosinophils % (Manual) 0 % (0-6) 10/09/19 05:43 Basophils % (Manual) 0 % (0-2) 10/09/19 05:43 Abs Neuts (Manual) 8.4 10^3/uL (1.7-8.2) H 10/09/19 05:43 Abs Lymphs (Manual) 0.7 10^3/uL (0.5-4.7) 10/09/19 05:43 Abs Monocytes (Manual) 0.6 10^3/uL (0.1-1.4) 10/09/19 05:43 Absolute Eos (Manual) 0.0 10^3/uL (0.0-0.6) 10/09/19 05:43 Abs Basophils (Manual) 0.0 10^3/uL (0.0-0.2) 10/09/19 05:43 Toxic Granulation 1+ 10/09/19 05:43 Platelet Estimate Cancelled 10/10/19 05:17 Platelet Comment ADEQUATE 10/09/19 05:43 Poikilocytosis SLIGHT 10/09/19 05:43 Ovalocytes SLIGHT 10/09/19 05:43 Sodium 136.5 mmol/L (137-145) L 10/11/19 05:19 Potassium 4.1 mmol/L (3.6-5.0) 10/11/19 05:19 Chloride 101 mmol/L (98-107) 10/11/19 05:19 Carbon Dioxide 29 mmol/L (22-30) 10/11/19 05:19 Anion Gap 7 (5-19) 10/11/19 05:19 BUN 7 mg/dL (7-20) 10/11/19 05:19 Creatinine 0.73 mg/dL (0.52-1.25) 10/11/19 05:19 Est GFR ( Amer) > 60 (>60) 10/11/19 05:19 Est GFR (MDRD) Non-Af > 60 (>60) 10/11/19 05:19 Glucose 90 mg/dL (75-110) 10/11/19 05:19 Calcium 8.9 mg/dL (8.4-10.2) 10/11/19 05:19 Total Bilirubin 0.8 mg/dL (0.2-1.3) 10/09/19 05:43 Direct Bilirubin 0.0 mg/dL (0.0-0.4) 10/09/19 05:43 Neonat Total Bilirubin Not Reportable 10/09/19 05:43 Neonat Direct Bilirubin Not Reportable 10/09/19 05:43 Neonat Indirect Bili Not Reportable 10/09/19 05:43 AST 35 U/L (14-36) 10/09/19 05:43 ALT 47 U/L (<35) H 10/09/19 05:43 Alkaline Phosphatase 124 U/L (38-126) 10/09/19 05:43 Troponin I < 0.012 ng/mL 10/09/19 05:43 Total Protein 6.7 g/dL (6.3-8.2) 10/09/19 05:43 Albumin 3.4 g/dL (3.5-5.0) L 10/09/19 05:43 Beta HCG, Quant < 2.39 mIU/mL (0.0-6.15) 10/09/19 05:43 Total Beta HCG NEGATIVE (NEGATIVE) 10/09/19 05:43 Urine Color YELLOW 10/09/19 06:40 Urine Appearance CLEAR 10/09/19 06:40 Urine pH 6.0 (5.0-9.0) 10/09/19 06:40 Ur Specific [place] 1.036 10/09/19 06:40 Urine Protein NEGATIVE mg/dL (NEGATIVE) 10/09/19 06:40 Urine Glucose (UA) NEGATIVE mg/dL (NEGATIVE) 10/09/19 06:40 Urine Ketones NEGATIVE mg/dL (NEGATIVE) 10/09/19 06:40 Urine Blood NEGATIVE (NEGATIVE) 10/09/19 06:40 Urine Nitrite NEGATIVE (NEGATIVE) 10/09/19 06:40 Urine Bilirubin NEGATIVE (NEGATIVE) 10/09/19 06:40 Urine Urobilinogen NEGATIVE mg/dL (<2.0) 10/09/19 06:40 Ur Leukocyte Esterase NEGATIVE (NEGATIVE) 10/09/19 06:40 Urine WBC (Auto) 1 /HPF 10/09/19 06:40 Urine RBC (Auto) 1 /HPF 10/09/19 06:40 Squamous Epi Cells Auto 1 /HPF 10/09/19 06:40 Urine Mucus (Auto) RARE /LPF 10/09/19 06:40 Urine Ascorbic Acid NEGATIVE (NEGATIVE) 10/09/19 06:40 Monotest NEGATIVE (NEGATIVE) 10/09/19 05:43 SARS-CoV-2 (PCR) NEGATIVE (NEGATIVE) 10/09/19 06:06 Slides for Path Review Cancelled 10/10/19 05:17 10/09/19 05:43 Troponin I < 0.012 Impressions: Chest/Abdomen CTA 10/09/19 05:45 IMPRESSION: There are bilateral airspace opacities concerning for infection. These can be seen with atypical viral or bacterial infections. No filling defect is seen to suggest a pulmonary artery embolism. Plan Time Spent: Greater than 30 Minutes Stroke Is this a Stroke Patient?: No Acute Heart Failure - Is this a Heart Failure Patient?: No
== END 2019-10-11 15:43 | disposition home or self-care (01) | DRG 871 ==
LOC: ER 05:02 → EH 07:44 → 4W 12:12
PROVIDERS: ADMIT Hospitalist; ATTEND Family Medicine
DX: A41.9 Sepsis, unspecified organism (principal); J18.9 Pneumonia, unspecified organism; E05.90 Thyrotoxicosis, unspecified without thyrotoxic crisis or storm; F32.9 Major depressive disorder, single episode, unspecified; L40.9 Psoriasis, unspecified; R05 Cough; E66.01 Morbid (severe) obesity due to excess calories; Z79.899 Other long term (current) drug therapy; Z03.818 Encounter for observation for suspected exposure to other biological agents ruled out; Z20.828 Contact with and (suspected) exposure to other viral communicable diseases
CPT/HCPCS: 36415; 71045; 71275; 80048; 80053; 81001; 84484; 84702; 85025; 86308; 87040; 87635; 93005; 93010; 94640; 96365; 99285; J0456; J0696; J7060; J7620